=== PATIENT | male | born 1955 | race Two or more races ===

== ENCOUNTER 2022-01-07 18:56 | Emergency (ER) | payer MEDICARE, MEDICAID ==
[~2022-01-07] VITALS: Ht 170.2 cm; Wt 94.0 kg
[2022-01-07 18:59] VITALS: BP 171/101
== END 2022-01-07 22:17 | disposition left against medical advice (07) ==
LOC: ER 18:56
DX: Z53.21 Procedure and treatment not carried out due to patient leaving prior to being seen by health care provider (principal)